=== PATIENT | female | born 1995 | race Caucasian/White ===

== ENCOUNTER 2017-09-25 16:24 | Emergency (ER) | payer MEDICAID ==
[~2017-09-25] VITALS: Ht 162.6 cm; Wt 102.0 kg
[~2017-09-25 16:24] MED LIST: ALBU8.5H8 IH; NO HOME MEDS; PRED10TA PO
[2017-09-25] MEDS ORDERED: LIDOcaine Viscous 15ml cup PO ONE (20:25)
[2017-09-25] MEDS ORDERED: mag hydrox/Alum hydrox/simeth 30ml oral suspension PO ONE (20:25)
[2017-09-25 20:42] VITALS: BP 135/90
== END 2017-09-25 20:44 | disposition home or self-care (01) ==
LOC: ER 16:24
DX: J02.9 Acute pharyngitis, unspecified (principal); F17.200 Nicotine dependence, unspecified, uncomplicated; Z79.899 Other long term (current) drug therapy
CPT/HCPCS: 87081; 87880; 99283; 99284

== ENCOUNTER 2025-02-25 22:20 | Emergency (ER) | payer MEDICAID ==
[~2025-02-25] VITALS: Ht 165.1 cm; Wt 97.0 kg
[~2025-02-25 22:20] MED LIST changes: +ALBU8.5H17 IH; -ALBU8.5H8 IH
[2025-02-25 22:45] VITALS: BP 101/68; PULSE 89; RESP 18; O2SAT 97
[2025-02-25] MEDS: bacitracin 15gm ointment TP ONE (23:36)
[2025-02-25 23:37] VITALS: TEMP 97.4
--- NOTE | 2025-02-25 23:43 | Physician Documentation ---
History of Present Illness ~ Chief Complaint: Bite-animal Stated Complaint: DOG BITE Time Seen by MD: 23:18 Primary Medical Doctor: Karthik [facility] HPI Year old female presents with a complaint of a minor dog bite on the posterior aspect of her right hand states the dog did not break the skin, but is wondering if she needs any medication to prevent infection Tetanus within 5 years?: Yes Medication Reconciliation Allergies: Coded Allergies: No Known Allergies (Unverified , 01/16/12) Scheduled Prednisone (Prednisone), 0 PO DAILY Scheduled PRN Albuterol Sulfate (Proair Hfa), 2 PUFFS IH Q4H PRN for SOB or wheezing Miscellaneous Medications Home Med List (No Home Medications), (Reported) Past Medical History Past Medical History: Bronchitis Past Surgical History: no surgical history Alcohol Use: None Drug Use: none Lives with: Mother Lives In: Home Occupation: employed Review of Systems All Other Systems at this time: Reviewed and Negative ROS As stated above in the HPI, otherwise all systems are reviewed and negative. Physical Exam Vital Signs: Temperature: 97.4, Source: Temporal, Heart Rate: 89, Respiratory Rate: 18, BP: 101/68, Pulse Oximetry: 97, Weight: 97.050 Oxygen Flow Rate: 0 Physical Exam General: Alert, no apparent distress. HEENT: PERRL, EOMI, no injection, moist mucous membranes. Extremities: right hand small abrasion palmar aspect Neurologic: Oriented x4. Psychiatric: Normal mood and affect. Skin: Normal color, warm and dry. No edema, no ecchymosis. Progress Results/Orders Results/Orders Completed Orders - MYNOR FLORES NP Bacitracin Ointment (Bacitracin Ointment (02/25/25 23:20) Medications Received in ER Medications (Trade) Dose Ordered Sig/Eliana Route PRN Reason Start Time Stop Time Status Last Admin Dose Admin (bacitracin ointment) 1 applic ONCE ONCE TP 02/25/25 23:20 02/25/25 23:21 DC 02/25/25 23:36 1 APPLIC Vital Signs 02/25/25 02/25/25 22:45 23:37 Temp 99.0 97.4 Pulse 89 Resp 18 B/P (MAP) 101/68 Pulse Ox 97 O2 Flow Rate 0 Medical Decision Making Findings I gave the patient some topical antibiotics. I do not see any reason to go any further there was no signs of any penetration or deformity. Differential Dx:Considerations: Include: Abrasion, Allergic reaction, Anaphylaxis, Cellulitis, Contusion, Fracture, Hematoma, Insect envenomation, Laceration, Neurovascular injury, Punture wound, Retained foreign body, Urticaria, Other Departure Disposition: 01 HOME / SELF CARE / HOMELESS Impression: Primary Impression: Dog bite Discharge Instructions: Animal Bite, Adult Referrals: NO PRIMARY CARE PROVIDER (PCP) Signature Scribe Signature: g Attestation: Scribed for Mynor Flores Refrigeration Mechanic by Mynor Alvarado NP . 02/25/25 23:43 MYNOR FLORES NP Feb 25, 2025 23:43
== END 2025-02-25 23:44 | disposition home or self-care (01) ==
LOC: ER 22:21
DX: S61.451A Open bite of right hand, initial encounter (principal); W54.0XXA Bitten by dog, initial encounter; Y93.89 Activity, other specified; Y92.89 Other specified places as the place of occurrence of the external cause; Y99.8 Other external cause status
CPT/HCPCS: 99282